=== PATIENT | female | born 2005 | race Caucasian/White ===

== ENCOUNTER 2024-11-27 14:46 | Emergency (ER) | payer OTHER, SELFPAY ==
[2024-11-27 15:18] VITALS: BP 123/74; PULSE 88; RESP 16; TEMP 37; O2SAT 97; BMI 34.8
[2024-11-27 17:59] VITALS: BP 119/70; PULSE 97; RESP 16; O2SAT 99
[2024-11-27 18:46] LABS: Bacteria Urine Many (>30); Culture Indicated Urine Cult Not Indicated; RBC Urine None Seen (0-5/HPF); Squamous Epithelial Cell Urine 0-1 /HPF (0-5/HPF); Urine Volume 10mL (spun); WBC Urine 0-1/HPF (0-5/HPF)
--- NOTE | 2024-11-27 19:26 | ED_ITS ---
HPI - Abdominal Pain General Chief Complaint: Abdominal Pain Stated Complaint: abd pain Time Seen by Provider: 11/27/24 18:53 Source: patient Mode of arrival: Ambulatory History of Present Illness HPI narrative: 19-year-old female with no reported past medical history presents with 1 month of right-sided abdominal pain, worse in the last 2 days. Patient initially went to the walk-in clinic this morning, but was told she should come to the ER for ultrasound. States that yesterday she was not able to eat because the smell of food made her very nauseous. No previous history of abdominal surgeries. No medications taken prior to arrival. Patient points to both her upper and lower abdomen as source of most pain. Related Data Previous Rx's Medication Instructions Recorded ondansetron 4 mg disintegrating 4 mg PO Q8H PRN nausea and 11/27/24 tablet vomiting #30 tabs Allergies Allergy/AdvReac Type Severity Reaction Status Date / Time adhesive tape Allergy Hives Verified 11/27/24 15:18 latex Allergy Hives Verified 11/27/24 15:18 norethindrone Allergy Hives Verified 11/27/24 15:18 Penicillins Allergy Hives Verified 11/27/24 15:18 Sulfa (Sulfonamide Allergy Hives Verified 11/27/24 15:18 Antibiotics) sulfamethoxazole Allergy Hives Verified 11/27/24 15:18 [From Sulfamethoxazole-Trimethoprim] trimethoprim Allergy Hives Verified 11/27/24 15:18 [From Sulfamethoxazole-Trimethoprim] Patient History Social History Smoking Status: Current every day smoker Smoking Status: Current every day smoker tobacco type: vaping Exam Initial Vital Signs Initial Vital Signs: Vital Signs Temperature 98.6 F 11/27/24 15:18 Pulse Rate 88 11/27/24 15:18 Respiratory Rate 16 11/27/24 15:18 Blood Pressure 123/74 11/27/24 15:18 Pulse Oximetry 97 11/27/24 15:18 Oxygen Delivery Method Room Air 11/27/24 15:18 Const: Awake, alert, no acute distress, nontoxic appearing Cardiac: regular rate, regular rhythm RESP: unlabored, clear bilaterally, no wheezing GI: Soft, right upper and lower quadrant tenderness to deep palpation, negative Borrero's sign, no rebound or guarding Skin: Warm, Dry, intact, no rashes Neuro: AO x3, CN II-XII grossly intact, moves all extremities Course Orders Ordered: Discontinued Medications Ketorolac Tromethamine (Ketorolac 30 Mg/Ml Vial) 15 mg IV NOW ONE Stop: 11/27/24 20:51 Last Admin: 11/27/24 20:57 Dose: 15 mg Documented By: IGLESIA Ondansetron HCl (Ondansetron 4 Mg/2 Ml Inj) 4 mg IV NOW PRN PRN Reason: Nausea And Vomiting Last Admin: 11/27/24 20:10 Dose: 4 mg Documented By: OFELIA Ondansetron HCl (Ondansetron 4 Mg Odt) 4 mg PO NOW PRN PRN Reason: Nausea And Vomiting Vital Signs Vital signs: Vital Signs - 8 hr 11/27/24 15:18 11/27/24 17:59 11/27/24 20:02 Temperature 98.6 F Pulse Rate 88 97 H 91 H Respiratory Rate 16 16 Blood Pressure 123/74 119/70 Pulse Oximetry 97 99 100 Oxygen Delivery Method Room Air Room Air 11/27/24 20:05 11/27/24 20:05 Temperature Pulse Rate 86 Respiratory Rate Blood Pressure 128/70 Pulse Oximetry 99 Oxygen Delivery Method MDM - Abdominal Pain Differential Diagnosis Differential diagnosis: Likely abdominal pain, acute appendicitis and calculus of kidney Lab Data 11/27/24 19:51 11/27/24 19:51 Labs: Lab Results 11/27/24 11/27/24 Range/Units 18:18 19:51 WBC 9.3 (4.5-11.0) X10^3/uL RBC 4.71 (4.0-5.2) X10^6/uL Hgb 13.0 (12.0-16.0) g/dL Hct 39.2 (36-46) % MCV 83.2 (80-100) fL MCH 27.5 (26-34) PG MCHC 33.1 (30-36) % RDW 13.1 (11.6-14.8) % Plt Count 359 (150-400) X10^3/uL Neut % (Auto) 62.2 (50-75) % Lymph % (Auto) 27.2 (25-40) % [place] % (Auto) 8.8 (3-14) % Eos % (Auto) 1.0 L (2-4) % Baso % (Auto) 0.8 (0-2) % Neut # (Auto) 5800 (9656-9213) /uL Lymph # (Auto) 2500 (3730-0609) /uL [place] # (Auto) 800 (0-900) /uL Eos # (Auto) 100 (0-450) /uL Baso # (Auto) 100 (0-100) /uL Sodium 135 L (137-145) mmol/L Potassium 4.0 (3.4-5.1) mmol/L Chloride 104 (98-107) mmol/L Carbon Dioxide 24 (22-32) mmol/L BUN 10 (7-17) mg/dL Creatinine 0.64 (0.52-1.04) mg/dL Estimated GFR > 60 (>60) mL/min BUN/Creatinine Ratio 15.6 (6-22) Glucose 82 (70-100) mg/dL Calcium 9.1 (8.4-10.2) mg/dL Total Bilirubin 1.3 (0.2-1.3) mg/dL AST 42 H (14-36) IU/L ALT 31 (<35) IU/L Alkaline Phosphatase 81 (38-126) U/L Total Protein 7.3 (6.3-8.2) g/dL Albumin 4.3 (3.5-5.0) g/dL Globulin 3.0 (1.7-4.1) g/dL Albumin/Globulin Ratio 1.4 (1.0-2.8) Lipase 52 (23-300) U/L Urine RBC None seen (0-5/HPF) Urine WBC 0-1/hpf (0-5/HPF) Ur Squamous Epith Cells 0-1 /hpf (0-5/HPF) Urine Bacteria Many (>30) H (None) Ur Culture Indicated? Cult not indicated Vol Urine Centrifuged 10ml (spun) Point of care testing: Point of Care Testing Test Results Negative Urine Dip Bedside Urine Glucose Negative Bedside Urine Bilirubin - Negative Bedside Urine Ketone ++ 40 Urine Specific [place] 1.015 Bedside Urine Occult Blood - Negative Bedside Urine pH 6.0 Bedside Urine Protein - Negative Bedside Urine Urobilinogen - Negative Bedside Urine Nitrite - Negative Bedside Urine Leukocytes - Negative Esterase Imaging Data CT scan - abdomen/pelvis: Radiologist's Impression: PROCEDURE: CT ABDOMEN PELVIS W CON INDICATIONS: R UPPER AND LOWER ABD PAIN X 1 MONTH, WORSENING TECHNIQUE: After the administration of intravenous contrast, axial sections acquired from the lung bases to the pubic symphysis. Coronal and sagittal reformats were performed. For radiation dose reduction, the following was used: automated exposure control, adjustment of mA and/or kV according to patient size. COMPARISON: None. FINDINGS: Image quality: Diagnostic. Lower Chest: No significant findings. ABDOMEN: Liver: No solid mass. Gallbladder: No radiopaque gallstones or wall thickening. Biliary ducts: No biliary dilation. Pancreas: No ductal dilation. Spleen: Size is within normal limits. Adrenal Glands: No adrenal nodules. Kidneys and Ureters: No hydronephrosis. No solid mass. No complex renal cystic lesion which requires follow up. Stomach and Bowel: Normal colonic caliber, without significant wall thickening. Appendix is visualized in right lower quadrant and is normal in size and appearance. Peritoneum: No abnormal intraperitoneal fluid. No free air. Ventral Wall: No significant ventral hernia. Abdominal Nodes: No retroperitoneal or mesenteric adenopathy by size criteria. Several shotty right lower quadrant mesenteric lymph nodes are seen which can be seen associated with mesenteric adenitis. Vessels: Aorta and inferior vena cava are normal in size. PELVIS: Pelvic Organs: Unremarkable. Bladder: No bladder wall thickening, accounting for underdistention. Pelvic Nodes: No enlarged lymph nodes. Miscellaneous: No inguinal hernias are seen. Bones: No aggressive osseous abnormality IMPRESSION: 1. Normal appendix. No bowel obstruction or abnormal bowel wall thickening. No free fluid or free air. 2. Shoddy sub cm lymph nodes seen in right lower quadrant mesentery which can be seen associated with clinical diagnosis of mesenteric adenitis. 3. No obstructing renal stones or hydronephrosis. Normal appearing gallbladder. Dictated by: Sadiq Roach M.D. on 11/27/2024 at 20:41 Approved by: Sadiq Roach M.D. on 11/27/2024 at 20:43 MDM Narrative Medical decision making narrative: One month of abdominal pain, worse in the last 2-3 days. Mother at bedside states that she was concerned that it may be related to the appendix as the patient has a sibling who had a ruptured appendix in their childhood, patient states that she was told that it may be her gallbladder by the walk-in clinic. On exam patient's abdomen is soft, she was upper and lower quadrant right-sided tenderness to deep palpation, however no rebound or guarding. No peritoneal signs. Based on description of symptoms, duration, concerned for either gallbladder or appendiceal pathology a CT will be ordered. Laboratory work reviewed, unremarkable. CT of the abdomen and pelvis shows normal appendix, normal gallbladder. Lymph node seen in the right lower quadrant that may be mesenteric adenitis. Patient reassessed, resting comfortably in bed, texting on her phone. Vital signs stable. Patient and her parents at bedside informed of lab and imaging findings. They are relieved to know that the appendix and gallbladder appeared normal. Conservative management advised for possible mesenteric adenitis. PCP follow up advised. ED return precautions discussed. Discharge Plan Departure Patient Disposition: Home Clinical Impression: Right sided abdominal pain Instructions: DI for Abdominal Pain-Adult Activity Restrictions/Additional Instructions: Your laboratory work today did not show any signs of infection. Your electrolytes are normal. Your CT scan did not show any abnormality with your appendix or your gallbladder. There were some small lymph nodes seen on your right-hand side, which can sometimes cause abdominal pains. This is usually related to a viral infection and should resolve on its own. Take Tylenol and ibuprofen as needed for discomfort. Follow up with your primary care physician if you do not notice any improvement as they may recommend additional testing. Prescriptions: New ondansetron 4 mg tablet,disintegrating 4 mg PO Q8H PRN (Reason: nausea and vomiting) Qty: 30 0RF Stand Alone Forms: Patient Portal/API/Survey, Work Release Note
[2024-11-27 20:00] LABS: Add Manual Diff / Slide Review NO; Basophils Absolute Auto 100 /uL (0-100); Basophils Percent Auto 0.8 % (0-2); Eosinophils Absolute Auto 100 /uL (0-450); Hematocrit 39.2 % (36-46); Lymphocytes Absolute Auto 2500 /uL (1100-4500); Lymphocytes Percent Auto 27.2 % (25-40); Mean Corpuscular HGB Conc 33.1 % (30-36); Mean Corpuscular Hemoglobin 27.5 PG (26-34); Mean Corpuscular Volume 83.2 fL (80-100); Monocytes Absolute Auto 800 /uL (0-900); Monocytes Percent Auto 8.8 % (3-14); Neutrophils Absolute Auto 5800 /uL (1500-7000); Neutrophils Percent Auto 62.2 % (50-75); Platelet Count 359 X10^3/uL (150-400); Red Blood Cell Count 4.71 X10^6/uL (4.0-5.2); Red Cell Distribution Width 13.1 % (11.6-14.8); White Blood Cell Count 9.3 X10^3/uL (4.5-11.0)
[2024-11-27 20:02] VITALS: PULSE 91; O2SAT 100
[2024-11-27 20:05] VITALS: BP 128/70; PULSE 86; O2SAT 99
[2024-11-27] MEDS: ONDANSETRON 4 MG/2 ML INJ IV (20:10)
[2024-11-27 20:13] LABS: Alanine Aminotransferase 31 IU/L (<35); Albumin 4.3 g/dL (3.5-5.0); Albumin Globulin Ratio 1.4 (1.0-2.8); Alkaline Phosphatase 81 U/L (38-126); Aspartate Aminotransferase 42 IU/L (14-36); BUN Creatinine Ratio 15.6 (6-22); Bilirubin Total 1.3 mg/dL (0.2-1.3); Blood Urea Nitrogen 10 mg/dL (7-17); Calcium 9.1 mg/dL (8.4-10.2); Carbon Dioxide 24 mmol/L (22-32); Chloride 104 mmol/L (98-107); Estimated Glomerular Filt Rate > 60 mL/min (>60); Glucose 82 mg/dL (70-100); HEMOLYSIS < 15 (0-50); Lipase 52 U/L (23-300); Sodium 135 mmol/L (137-145); Total Protein 7.3 g/dL (6.3-8.2)
[2024-11-27 20:30] VITALS: BP 119/68; PULSE 78; RESP 20; O2SAT 97
[2024-11-27] MEDS: KETOROLAC 30 MG/ML VIAL 15 MG IV (20:57)
[2024-11-27 21:00] VITALS: BP 116/72; PULSE 78; RESP 17; O2SAT 98
== END 2024-11-27 21:05 | disposition home or self-care (01) ==
PROVIDERS: Emergency Medicine; Emergency Provider Emergency Medicine
DX: R10.11 Right upper quadrant pain (principal); R10.31 Right lower quadrant pain
CPT/HCPCS: 36415; 74177; 80053; 81003; 81015; 81025; 83690; 85025; 96374; 96375; 99284; J1885; J2405; Q9967

== ENCOUNTER 2025-10-27 12:22 | Emergency (ER) | payer OTHER, SELFPAY ==
[2025-10-27 13:00] VITALS: BP 130/85; PULSE 91; RESP 18; TEMP 36.9; O2SAT 96; BMI 42.9
--- NOTE | 2025-10-27 14:31 | ED_ITS ---
HPI - Extremity Problem General Chief complaint: Extremity Problem,Nontraumatic Stated complaint: rt knee px Time Seen by Provider: 10/27/25 13:33 Source: patient Mode of arrival: Ambulatory History of Present Illness HPI Narrative: 20-year-old woman presents with a right knee pain. Three weeks ago she had an acute twisting like injury on October 05 [address] seen at [facility] emergency department. Walk-in clinic on October [address] [facility] on October 21 she did see her orthopedic surgeon and follow up and has not MRI scheduled for the . She is still having significant pain, is concerned that her kneecap is moving and comes in for further evaluation. He has had no fevers or chills, there has been no new trauma or falls, there is not any increase in unilateral swelling. She has a mild effusion in the right knee. She is wearing a knee immobilizer that can be set for flexion and finds that there are points along the knee immobilizer that are pressing that are quite uncomfortable she also finds that flexion itself is uncomfortable. Related Data Previous Rx's ?Medication ?Instructions ?Recorded ondansetron 4 mg disintegrating 4 mg PO Q8H PRN nausea and 11/27/24 tablet vomiting #30 tabs Allergies Allergy/AdvReac Type Severity Reaction Status Date / Time adhesive tape Allergy Hives Verified 10/27/25 13:07 latex Allergy Hives Verified 10/27/25 13:07 norethindrone Allergy Hives Verified 10/27/25 13:07 Penicillins Allergy Hives Verified 10/27/25 13:07 Sulfa (Sulfonamide Allergy Hives Verified 10/27/25 13:07 Antibiotics) sulfamethoxazole (From Allergy Hives Verified 10/27/25 13:07 Sulfamethoxazole-Trimethoprim) trimethoprim (From Allergy Hives Verified 10/27/25 13:07 Sulfamethoxazole-Trimethoprim) Review of Systems Review of Systems Narrative: Pertinent positive and negative findings as per HPI Patient History Smoking Status: Current some day smoker tobacco type: vaping Exam Initial Vital Signs Initial Vital Signs: Vital Signs Temperature 98.5 F 10/27/25 13:00 Pulse Rate 91 H 10/27/25 13:00 Respiratory Rate 18 10/27/25 13:00 Blood Pressure 130/85 10/27/25 13:00 Pulse Oximetry 96 10/27/25 13:00 Oxygen Delivery Method Room Air 10/27/25 13:00 General: Alert appropriate in no acute distress Respiratory: Able to speak in full sentences, no obvious respiratory distress Skin: No obvious rashes, warm and dry Neurologic: Grossly intact no obvious asymmetries or abnormalities Psych: appropriate insight and affect, cooperative Extremity: Right knee has a small effusion. She is tender with significant flexion. She is neurovascularly intact distally. She does not have more swelling in the right calf to suggest DVT. There was no warmth or redness to the knees to suggest septic joint Course Vital Signs Vital signs: Vital Signs - 8 hr 10/27/25 13:00 Temperature 98.5 F Pulse Rate 91 H Respiratory Rate 18 Blood Pressure 130/85 Pulse Oximetry 96 Oxygen Delivery Method Room Air MDM - Extremity (Nontraumatic) MDM Narrative Medical decision making narrative: 20-year-old woman with 3 weeks of right knee pain multiple ER and walk-in visits as well as an orthopedic evaluation with MRI scheduled in 48 hours still with pain and poor understanding of the pathophysiology of her injury. According to previous notes, notes from [facility] are reviewed, most likely diagnosis is a torn meniscus. With x-rays recently done an MRI scheduled additional imaging is not indicated today She has not been using any pain medications over the last couple of days. As her current brace seems to be hurting, I have given her a long-leg knee immobilizer with out the flexion option and the padding that is more consistent up and down the leg. We talked about icing the knee which she has not been doing. Talked about avoiding continued narcotics at this point which she understood completely. Suggested ibuprofen and Tylenol as combination, continued use of the crutches she already has. She understands the importance of having the MRI on Tuesday to actually get to an eventual diagnosis for definitive treatment. At this time most likely explanation is meniscal tear, there was no evidence of septic joint, DVT or other complication that would require further workup. She had multiple questions all were thoroughly answered, she expressed understanding and is safely discharged Discharge Plan Departure Patient Disposition: Home Clinical Impression: Acute pain of right knee Instructions: DI for Knee Pain Activity Restrictions/Additional Instructions: Thank you for coming in today So sorry that you are continuing to hurt. Fortunately, you have already seen the orthopedic surgeon, you do have an MRI scheduled for Tuesday and you are willing your way to actually getting to a diagnosis. We need an actual diagnosis to get to definitive treatment. I can not tell you there was no sign of infection in your knee or blood clots in your calf. In the meantime, using ice regularly to help with swelling actually does continue to help. We gave you a different knee immobilizer to see if that was more comfortable. You can use whichever knee immobilizer seems best but you do need to continue to have went on. Please do continue using the crutches. Using 400 mg of ibuprofen (2 [id number] pills) and 1 Tylenol every 6 hours can be very helpful in controlling pain. At this point, using any additional narcotics is not going to be helpful and does put you at additional risk for addiction. I am glad that you already recognize this and avoiding them at this point is the best choice Please make sure that you keep your Tuesday MRI appointment and your follow up a ppointment with your orthopedic doctor Prescriptions: No Action ondansetron 4 mg tablet,disintegrating 4 mg PO Q8H PRN (Reason: nausea and vomiting) Qty: 30 0RF Stand Alone Forms: Patient Portal/API
[2025-10-27] MEDS: IBUPROFEN 400 MG TABLET PO (14:52)
[2025-10-27] MEDS: ACETAMINOPHEN 325 MG TABLET PO (14:52)
[2025-10-27 15:05] VITALS: BP 129/76; PULSE 92; RESP 18; O2SAT 97
== END 2025-10-27 15:06 | disposition home or self-care (01) ==
PROVIDERS: Emergency Provider Emergency Medicine
DX: M25.461 Effusion, right knee (principal)
CPT/HCPCS: 99283